=== PATIENT | male | born 1990 ===

== ENCOUNTER 2022-10-01 03:26 | Emergency (ER) | payer BC ==
[2022-10-01] MEDS ORDERED: ALPRAZolam 0.25 MG Tab PO ONE (03:51)
[2022-10-01 04:38] LABS: CORONAVIRUS COVID-19 NAA NEGATIVE (NEGATIVE); INFLUENZA A NAA NEGATIVE (NEGATIVE); INFLUENZA B NAA NEGATIVE (NEGATIVE); RESPIRATORY SYNCYTIAL VIR NAA NEGATIVE (NEGATIVE)
== END 2022-10-01 05:46 | disposition home or self-care (01) ==
LOC: MW.ED 03:26
DX: R07.9 Chest pain, unspecified (principal); Z20.822 Contact with and (suspected) exposure to COVID-19
CPT/HCPCS: 0241U; 71045; 80305; 93005; 99285; A9270; 93010; 99283